=== PATIENT | female | born 1985 | race Two or more races ===

== ENCOUNTER 2022-12-30 19:21 | Emergency (ER) | payer OTHER ==
[~2022-12-30] VITALS: Ht 162.6 cm; Wt 73.7 kg
[2022-12-31 00:20] VITALS: BP 118/74
[2022-12-31] MEDS ORDERED: RALT400T PO ×3 (00:23→22:47)
[2022-12-31] MEDS ORDERED: EMTRTAB7 PO ×3 (00:23→22:47)
[2022-12-31 00:45] LABS: Hepatitis B Surface Antibody Negative (Negative)
== END 2022-12-31 00:43 | disposition home or self-care (01) ==
LOC: ER 19:21
DX: S61.231A Puncture wound without foreign body of left index finger without damage to nail, initial encounter (principal); Z20.6 Contact with and (suspected) exposure to human immunodeficiency virus [HIV]; W46.0XXA Contact with hypodermic needle, initial encounter; Y93.89 Activity, other specified; Y92.89 Other specified places as the place of occurrence of the external cause; Y99.8 Other external cause status
CPT/HCPCS: 36415; 86703; 86706; 86803; 87340